=== PATIENT | female | born 1940 | race Caucasian/White ===

== ENCOUNTER → 2025-06-18 08:54 | Outpatient (REF) | payer MEDICARE, BC, SELFPAY ==
[2025-06-18 09:33] LABS: INR 1.50; PT 18.3 Sec (11.4-14.6)
[2025-06-18 09:34] LABS: APTT 30.1 Sec (23.4-35.0)
== END ==
LOC: REG 08:54
PROVIDERS: ATTENDING PHYSICIAN Dentist Oral and Maxillofacial Surgery
DX: Z79.01 Long term (current) use of anticoagulants (principal)
CPT/HCPCS: 36415; 85610; 85730